=== PATIENT | female | born 1980 | race Caucasian/White ===

== ENCOUNTER → 2017-10-02 16:04 | Outpatient (CLI) | payer BC, SELFPAY | PROVIDERS: Family Provider Family Medicine; PCP Family Medicine; Visit Provider Family Medicine | DX: R30.0 Dysuria (principal) | CPT/HCPCS: 87086; 87088 ==

== ENCOUNTER 2022-03-07 07:59 | Emergency (ER) | payer BC, SELFPAY ==
[2022-03-07 08:00] VITALS: BP 152/90; PULSE 78; RESP 16; TEMP 36; O2SAT 100; BMI 34.2
--- NOTE | 2022-03-07 08:30 | CT_ITS ---
STUDY: CT LUMBAR SPINE WITHOUT CONTRAST REASON FOR EXAM: Female, 41 years old. Back pain. RADIATION DOSAGE (If Supplied By Facility): CTDIvol = ( 24.68 ) mGy, DLP = ( 692.34 ) mGycm TECHNIQUE: The patient was scanned in a multi detector CT scanner. High resolution transaxial imaging was performed. Images were obtained from L1 to S1 vertebral level. Sagittal and coronal images were reconstructed. Individualized dose optimization techniques were used for this CT. COMPARISON: None FINDINGS: Normal lumbar lordosis. There is no substantial scoliosis. Normal vertebrae of the lumbar spine. L1-2: There is mild disc space narrowing and anterior spondylosis. There is a 1.2 cm x 1.2 cm rounded sclerotic focus along the superior right lateral aspect of the L2 vertebrae anteriorly. Correlation with a bone scan is recommended. L2-3: Normal endplates. Normal disc height and morphology. Normal bilateral facet joints. Normal central canal and bilateral lateral recesses. Normal bilateral intervertebral neural foramina. L3-4: Normal endplates. Normal disc height and morphology. Normal bilateral facet joints. Normal central canal and bilateral lateral recesses. Normal bilateral intervertebral neural foramina. L4-5: Mild degree of disc space narrowing. Mild diffuse posterior disc bulge slightly worse on the right side. Mild right neural foraminal stenosis. L5-S1: Mild degree of right posterolateral disc bulge causing narrowing of the right intervertebral foramen. Tiny nonobstructive left intrarenal calculi. CT/Spine Lumbar without Contrast IMPRESSION: 1.2 cm x 1.2 cm rounded sclerotic focus along the superior right lateral aspect of the L2 vertebra anteriorly. Correlation with bone scan is recommended. Posterior disc bulge at the L4-L5 and L5-S1 level on the right side of midline with narrowing of the right intervertebral foramen. Electronically Signed: Zac Bermeo MD at 9:48 EST ,
--- NOTE | 2022-03-07 08:31 | EDS_ITS ---
HPI History of Present Illness Chief Complaint: Back Associated Symptoms Associated Symptoms: Radiation to Right Leg and Radiation to Left Leg Narrative Narrative: 41-year-old female, past medical history of bulging disks in her upper back presents with low back pain and burning in her pelvis that she has had over the last few days. She states she went to urgent care yesterday and was told that she does not have a urinary tract infection. She thought that she might have had this because she had a urinary tract infection at the end of December/early last month where she was on Macrobid, but she had a resistant bacteria so she was changed to Bactrim. She took a Pyridium last night. She describes pain and burning on the backs of her bilateral thighs and in her pelvis. She denies any fevers or chills. No nausea or vomiting. No pain with urination. While she denies any saddle anesthesia, she states that her entire pelvis is burning and that she has a burning sensation also in the perineum. She denies any loss of bowel or bladder. No other symptoms. PFSH PFS Home Medications multivitamin with folic acid 400 mcg tablet (Thera) 1 tab PO DAILY 07/26/13 [History Last Taken Unknown] ciprofloxacin HCl 500 mg tablet 500 mg PO BID 03/07/22 [History Last Taken Unknown] Allergy/AdvReac Type Severity Reaction Status Date / Time No Known Allergies Allergy Verified 03/07/22 08:00 Social History Smoking Status: Never smoker ROS ROS ED ROS Narrative Constitutional: No fever, no chills. HEENT: No sore throat. No neck pain. No loss of vision. No rhinorrhea. Cardiovascular: No chest pain. No palpitations. No pedal edema. Respiratory: No cough, no shortness of breath. Abdominal: No abdominal pain. No nausea. No vomiting. Genitourinary: No dysuria. No hematuria. Musculoskeletal: No myalgias. No arthralgias. Burning sensation in pelvis. Low back pain radiating to back of bilateral thighs. Neurologic: No headaches. No dizziness. No lightheadedness. Skin: No rash. No change in color. Psychiatric: No depression. No anxiety. EXAM Physical Exam Narrative Exam Narrative: Afebrile. Vital signs noted. HEENT: Normocephalic. Atraumatic. PERRL, EOMI. Neck soft and supple. No point tenderness or step off. Cardiovascular: Regular rate and rhythm. No murmurs, rubs, or gallops appreciated. Respiratory: No tachypnea. Lungs clear to auscultation bilaterally. Gastrointestinal: Abdomen soft, nontender, with normoactive bowel sounds. No rebound or guarding. Neurological: Awake. Alert. Nonfocal, nonlateralizing. Patellar DTRs equal and symmetric. Straight leg raising negative bilaterally. Skin: No rash. Normal color. No pallor. Musculoskeletal: No pedal edema. Full range of motion extremities. Const Vital Signs: 03/07/22 08:00 Temperature 96.8 F L Temperature Source Temporal Pulse Rate 78 Respiratory Rate 16 Blood Pressure 152/90 H Blood Pressure Mean 110 Pulse Ox 100 Oxygen Delivery Method Room Air MDM MDM MDM Narrative Medical decision making narrative: I will recheck her urinalysis, but I do feel that she may have more of a lumbar disc problem. She will be administered Toradol after negative hCG. I obtain CT imaging of her back/lumbar spine. Currently, I do not feel that emergent MRI is indicated. Urinalysis is negative for infection. Urine test is negative. CT of the lumbar spine shows a 1.2 cm x 1.2 cm rounded sclerotic focus along the superior right lateral aspect of the L2 vertebra anteriorly. Bone scan is recommended. I do feel that this can be performed as an outpatient. There is posterior disc bulge at the L4-L5 and L5-S1 level on the right side of the midline with narrowing of the right intervertebral foramina. I do feel that this can be the cause of her low back pain/radicular symptoms. I have low concern for cauda equina syndrome as she has no other physical exam findings consistent with this. She will take [id number] analgesics and f ollow-up with her primary care provider by the end of the week. I feel she can be discharged safely home with follow-up. Return instructions to the emergency department were reviewed. Disposition is discharged home in stable condition. Lab Data Attestation: I reviewed the patient's lab results. Labs: Laboratory Results - last 24 hr 03/07/22 08:34 Urine Color Yellow Urine Clarity Clear Urine pH 7.0 Ur Specific [place] 1.010 Urine Protein Negative Urine Glucose (UA) Normal Urine Ketones Negative Urine Occult Blood Negative Urine Nitrite Negative Urine Bilirubin Negative Urine Urobilinogen Normal Ur Leukocyte Esterase Negative Urine RBC 0 SEEN Urine WBC 0 SEEN Ur Squamous Epith Cells 0 SEEN Urine Bacteria 0 SEEN Urine Mucus 0 SEEN Urine Test Negative Radiography Diagnostic Testing: Clinical Impression(s) from Imaging Studies Lumbar Spine CT 03/07/22 08:30 IMPRESSION: 1.2 cm x 1.2 cm rounded sclerotic focus along the superior right lateral aspect of the L2 vertebra anteriorly. Correlation with bone scan is recommended. Posterior disc bulge at the L4-L5 and L5-S1 level on the right side of midline with narrowing of the right intervertebral foramen. Electronically Signed: Zac Bermeo MD at 9:48 EST , Discharge Plan Triage Chief Complaint: Back Other Complaint: Abd Pain ED Provider: Wyatt Goldman Dx/Rx/DC Orders Clinical Impression: Abnormal CT of spine, L4-L5 disc bulge, Burning pain Instructions: Low Back Leg Pain Causes, Common Spine and Disk Problems, ED Degenerative Disk Disease, ED Pain, Acute, Uncertain Cause, ED Sciatica Prescriptions: No Action multivitamin with folic acid [Thera] 1 TABLET tablet 1 tab PO DAILY ciprofloxacin HCl 500 mg tablet 500 mg PO BID Label Comments: Take 1 Tablet (oral) every 12 hours for 5 days Primary Care Provider: Mike Hopper Referrals: Mike Hopper MD [Primary Care Provider] - 1-2 Days if not improving Activity Restrictions/Additional Instructions: You had an abnormal CT of your back, or lumbar spine. You have disc bulging noted. Additionally, there was a sclerotic lesion in the L2 vertebrae which will require further outpatient work-up. Call your doctor soon as possible to be seen for recommended bone scan by radiology. Disposition Disposition: Home, Self Care
[2022-03-07] MEDS: Ketorolac 60 MG/2 ML Vial IM (08:42)
[2022-03-07 08:44] LABS: Bacteria 0 SEEN /hpf (None Seen); Mucous, Urine 0 SEEN /hpf (<or=2+); Red Blood Cells-Urine 0 SEEN /hpf (0-5); Squamous Epithelial Cells - UA 0 SEEN /hpf (5-10); White Blood Cells 0 SEEN /hpf (0-5)
[2022-03-07 08:49] LABS: Color, Urine Yellow (Yellow); Glucose, Dipstick Normal (Normal); Ketone-Dipstick Negative (Negative); Leukocyte Esterase-Dipstick Negative /ul (Negative); Nitrite-Dipstick Negative (Negative); Occult Blood-Urine Negative /ul (Negative); Protein-Dipstick Negative (Negative); Urine Bilirubin Dipstick Negative (Negative); Urine Clarity Clear (Clear); Urine Urobilinogen Normal (Normal)
[2022-03-07 08:54] LABS: Internal QC Validated? YES +Cl - CLEAR BKGD; Pregnancy, Urine Negative Negative
[2022-03-07 10:25] VITALS: BP 124/69; PULSE 73; RESP 15; O2SAT 98
== END 2022-03-07 10:26 | disposition home or self-care (01) ==
PROVIDERS: Emergency Provider Emergency Medicine; PCP Family Medicine; Visit Provider Emergency Medicine
DX: M51.26 Other intervertebral disc displacement, lumbar region (principal); R10.9 Unspecified abdominal pain; M48.07 Spinal stenosis, lumbosacral region; M54.9 Dorsalgia, unspecified; R93.7 Abnormal findings on diagnostic imaging of other parts of musculoskeletal system
CPT/HCPCS: 72131; 81001; 81025; 96372; 99282

== ENCOUNTER → 2022-06-27 | Outpatient (CLI) | payer BC, SELFPAY ==
--- NOTE | 2022-06-27 09:42 | NM_ITS ---
CLINICAL: 41-year-old female with history of L2 sclerotic density defined on CT of the lumbar spine report 03/07/2022. WHOLE BODY 99m Tc MDP RADIONUCLIDE BONE SCINTIGRAPHY COMPARISON: CT of the lumbar spine report 03/07/2022 FINDINGS: Following the intravenous administration of 25.0 mCi of 99m Tc MDP, whole body bone images reveal: 1. Increased radiopharmaceutical concentration is noted in the acromioclavicular and sternoclavicular compartments of both shoulders, the lateral glenohumeral compartment of the right shoulder, the visualized right elbow, the left wrist and hand, the patellofemoral compartments of both knees. 2. The remaining skeletal structures are scintigraphically unremarkable with normal-appearing renal images and urinary bladder activity identified. NM/Bone Scan Whole Body IMPRESSION: 1. The increase in tracer uptake defined in the bilateral shoulders, the right elbow, the left wrist and hand in both knee articulations is commensurate with degenerative arthropathy. 2. Special attention paid to the second lumbar vertebra demonstrates no evidence of correlating increased uptake on whole body bone scintigraphy corresponding to the radiographic abnormality noted CT of the lumbar spine report 03/07/2022. Electronically Signed: Mario Zuniga, at 16:44 EDT ,
== END | disposition home or self-care (01) ==
LOC: NM 09:39
PROVIDERS: PCP Family Medicine; Referring Provider Family Medicine; Visit Provider Family Medicine
DX: M89.9 Disorder of bone, unspecified (principal)
CPT/HCPCS: 78306; A9503

== ENCOUNTER → 2023-05-25 | Outpatient (CLI) | payer BC, SELFPAY ==
[2023-05-25 17:55] LABS: Absolute Lymphocyte Count 2.89 X10^3/uL (0.83-4.51); Absolute Neutrophil Count 6.7 X10^3/uL (2.0-7.7); Basophil# 0.09 X10^3/uL; Basophil% 0.9 % (0-1); Eosinophil# 0.36 X10^3/uL; Eosinophils% 3.4 % (0-5); Hematocrit 44.2 % (37-47); Hemoglobin 14.4 g/dL (12.0-15.0); Lymphocyte # 2.89 X10^3/ul (0.83-4.51); Lymphocyte % 27.4 % (19-41); Mean Corp Hgb Conc 32.6 g/dL (32-36); Mean Corpuscular Hgb 28.1 pg (27.0-32.0); Mean Corpuscular Volume 86.2 fL (81-99); Mean Platelet Vol. 12.3 fl (6.2-12.0); Monocyte# 0.49 X10^3/uL; Monocyte% 4.6 % (0-10); NRBC Flagged by Analyzer 0 % (0-5); Neutrophil # 6.67 X10^3/uL (2.7-7.7); Neutrophil % 63.1 % (47-70); Platelet Count 296 K/mm3 (150-450); RBC Distribution Width CV 12.4 % (11.6-14.6); RBC Distribution Width SD 39.3 fl (35.1-43.9); Red Blood Count 5.13 M/mm3 (4.2-5.4); White Blood Count 10.6 K/mm3 (4.4-11.0)
[2023-05-25 18:09] LABS: Vitamin D,25 Hydroxy 39.2 ng/mL
[2023-05-25 18:21] LABS: Ferritin 23 ng/mL (8-252); Iron 29 ug/dL (50-170); Thyroid Stim Hormone (TSH) 1.11 uIU/mL (0.358-3.74)
== END | disposition home or self-care (01) ==
LOC: MTLAB 16:35
PROVIDERS: PCP Family Medicine; Referring Provider Nurse Practitioner Family; Visit Provider Nurse Practitioner Family
DX: R53.83 Other fatigue (principal); E61.1 Iron deficiency; E55.9 Vitamin D deficiency, unspecified
CPT/HCPCS: 36415; 82306; 82728; 83540; 84439; 84443; 85025